=== PATIENT | female | born 1955 | race Caucasian/White ===

== ENCOUNTER → 2021-06-23 08:10 | Outpatient (BNVA) | payer MEDICARE, BC, SELFPAY | PROVIDERS: PCP Family Medicine; Visit Provider Internal Medicine Rheumatology | DX: M05.79 Rheumatoid arthritis with rheumatoid factor of multiple sites without organ or systems involvement (principal); M81.0 Age-related osteoporosis without current pathological fracture; M75.51 Bursitis of right shoulder; Z79.899 Other long term (current) drug therapy | CPT/HCPCS: 99203 ==